=== PATIENT | female | born 1980 ===

== ENCOUNTER 2024-10-31 11:15 | Inpatient (IN) | payer OTHER ==
[~2024-10-31] VITALS: Ht 162.6 cm; Wt 70.8 kg
[~2024-10-31 11:15] MED LIST: PRENATAL1 TAB
[2024-10-31] MEDS ORDERED: PROTONIX40 MG PO (13:12)
[2024-11-12] MEDS ORDERED: METRONIDAZOLE/SODIUM CHLORIDE 500 MG/100 ML PIGGYBACK IV ONE (06:39)
[2024-11-12] MEDS ORDERED: CEFTRIAXONE SODIUM 2,000 MG VIAL ONE (06:39)
[2024-11-13 07:07] LABS: HEMATOCRIT 36.3 % (36.0-45.00); MEAN CELL VOLUME 81.9 fL (80.00-100.00); MEAN CORPUSCULAR HEMOGLOBIN 27.1 pg (27.00-32.0); MEAN CORPUSCULAR HGB CONC 33.1 g/dl (32.0-36.0); PLATELET COUNT 259 K/uL (150-450); RED BLOOD COUNT 4.42 M/uL (4.00-6.00); RED CELL DISTRIBUTION WIDTH 14.5 % (11.5-14.5)
[2024-11-13 07:43] LABS: ALBUMIN 3.2 gm/dL (3.4-5.0); CALCIUM 8.4 mg/dL (8.5-10.1); CREATININE SERUM 0.5 mg/dL (0.55-1.02); GFR 132.83; PHOSPHOROUS 3.2 mg/dL (2.5-4.9); POTASSIUM 4.32 mEq/L (3.5-5.1)
[2024-11-13] MEDS ORDERED: ENOXAPARIN SODIUM 40 MG/0.4 ML SYRINGE SUBCUTANEO SCH (09:00)
[2024-11-13] MEDS ORDERED: FAMOTIDINE/PF 20 MG/2 ML VIAL IV SCH (09:00)
[2024-11-13] MEDS ORDERED: MORPHINE SULFATE 4 MG/ML CARTRIDGE IV PRN (11:30)
[2024-11-13] MEDS ORDERED: ACETAMINOPHEN 500 MG GEL..CAP PO SCH (12:00)
[2024-11-13] MEDS ORDERED: ONDANSETRON HCL 2 MG/ML VIAL IV PRN (12:15)
[2024-11-13] MEDS ORDERED: ENALAPRILAT DIHYDRATE 1.25 MG/ML VIAL IV PRN (12:15)
[2024-11-13] MEDS ORDERED: RINGERS SOLUTION,LACTATED 1,000 ML IV SCH (12:15)
[2024-11-13] MEDS ORDERED: GABAPENTIN 300 MG CAPSULE PO SCH (17:00)
[2024-11-14 01:23] VITALS: BP 112/62; O2SAT 100
[2024-11-14 06:52] LABS: HEMATOCRIT 34.9 % (36.0-45.00); HEMOGLOBIN 11.7 g/dL (12.0-15.00); MEAN CELL VOLUME 80.8 fL (80.00-100.00); MEAN CORPUSCULAR HEMOGLOBIN 27.1 pg (27.00-32.0); MEAN CORPUSCULAR HGB CONC 33.5 g/dl (32.0-36.0); PLATELET COUNT 268 K/uL (150-450); RED BLOOD COUNT 4.32 M/uL (4.00-6.00); RED CELL DISTRIBUTION WIDTH 14.8 % (11.5-14.5)
[2024-11-14 07:29] LABS: CALCIUM 8.6 mg/dL (8.5-10.1); CREATININE SERUM 0.53 mg/dL (0.55-1.02); GFR 124.19; MAGNESIUM 1.9 mg/dL (1.8-2.4); PHOSPHOROUS 2.6 mg/dL (2.5-4.9); POTASSIUM 3.92 mEq/L (3.5-5.1)
[2024-11-14 08:32] VITALS: BP 113/75; O2SAT 100
[2024-11-14 16:15] VITALS: BP 121/83; O2SAT 96
[2024-11-15 00:52] VITALS: BP 109/72; O2SAT 96
[2024-11-15 09:22] VITALS: BP 126/81; O2SAT 100
[2024-11-15] MEDS ORDERED: PANTOPRAZOLE SODIUM 40 MG/VIAL VIAL IV STA (10:51)
[2024-11-15 17:05] VITALS: BP 132/89; O2SAT 100
== END 2024-11-15 18:40 | disposition home or self-care (01) | DRG 330 ==
LOC: SURG 11-12 05:19 → O/R 11-12 05:19 → SURH 11-12 11:15 → SURG 11-12 20:00
PROVIDERS: Internal Medicine Geriatric Medicine; ADMIT Colon & Rectal Surgery; ATTEND Colon & Rectal Surgery
PROC: 0DTN4ZZ Resection of Sigmoid Colon, Percutaneous Endoscopic Approach (ICD-10-PCS; principal; 2024-11-12)
PROC: 0DBP4ZZ Excision of Rectum, Percutaneous Endoscopic Approach (ICD-10-PCS; 2024-11-12)
DX: K57.20 Diverticulitis of large intestine with perforation and abscess without bleeding (principal); K92.1 Melena